=== PATIENT | male | born 1970 | race African-American/Black ===

== ENCOUNTER 2017-08-09 18:51 | Emergency (ER) | payer MEDICAID ==
[~2017-08-09] VITALS: Ht 182.9 cm; Wt 96.0 kg
[2017-08-09] MEDS ORDERED: BACITRACIN ZINC OINT UDPKT TOP ONE (20:00)
[2017-08-09] MEDS ORDERED: LIDOCAINE HCL 1% 20ML VIAL (Pyxis) INJ MC ONE (20:00)
[2017-08-09 21:00] VITALS: BP 144/91
== END 2017-08-09 21:05 | disposition home or self-care (01) ==
LOC: ER 18:55
DX: L02.414 Cutaneous abscess of left upper limb (principal); F17.210 Nicotine dependence, cigarettes, uncomplicated; F12.10 Cannabis abuse, uncomplicated
CPT/HCPCS: 10060; 99283; J3490; X7700; Z7610

== ENCOUNTER 2018-03-17 21:06 | Emergency (ER) | payer MEDICAID ==
[~2018-03-17] VITALS: Ht 182.9 cm; Wt 93.0 kg
[2018-03-17] MEDS ORDERED: IBUPROFEN 600MG TABLET PO ONE (23:30)
[2018-03-18 02:18] VITALS: BP 148/92
== END 2018-03-18 02:54 | disposition home or self-care (01) ==
LOC: ER 21:06
DX: S63.501A Unspecified sprain of right wrist, initial encounter (principal); M54.2 Cervicalgia; M54.5 Low back pain; R51 Headache; V43.52XA Car driver injured in collision with other type car in traffic accident, initial encounter; Y93.89 Activity, other specified; Y92.410 Unspecified street and highway as the place of occurrence of the external cause
CPT/HCPCS: 29125; 70450; 71045; 73110; 93005; 99284; Z7610

== ENCOUNTER 2018-08-13 12:53 | Inpatient (IN) | payer MEDICAID ==
[~2018-08-13] VITALS: Ht 182.9 cm; Wt 90.8 kg
[2018-08-13] MEDS: DEXT 5%/0.45% NACL 1000ML 1,000 ML IV SCH
[2018-08-13] MEDS ORDERED: MORPHINE SULFATE 4 MG/ML CPJ (NOT FOR IM USE) IV STA (15:29)
[2018-08-13] MEDS ORDERED: SODIUM CHLORIDE 0.9% 1,000 ML IV ONE (15:29)
[2018-08-13] MEDS ORDERED: ONDANSETRON HCL 4MG/2ML INJ IV STA (15:29)
[2018-08-13 16:29] LABS: HEMATOCRIT. 45.2 % (42.0-52.0); HEMOGLOBIN. 15.6 g/dL (14.0-18.0); MEAN CORPUSCULAR HEMOGLOBIN 31.3 pg (28.0-32.0); MEAN CORPUSCULAR VOLUME 90.8 fL (80.0-94.0); MEAN PLATELET VOLUME 8.2 fl (7.4-10.4); PLATELET 195 x1000/uL (130-400); RED BLOOD CELL COUNT 4.98 mill/uL (4.7-6.1); RED CELL DISTRIBUTION WIDTH 14.1 % (11.6-14.6)
[2018-08-13 16:33] LABS: INR 1.2; PROTHROMBIN TIME 11.6 sec (9.1-11.1)
[2018-08-13 16:35] LABS: CHLORIDE 99 mEq/L (98-107)
[2018-08-13 16:54] LABS: PLATELET ESTIMATE NORMAL
[2018-08-13] MEDS ORDERED: ONDANSETRON HCL 4MG/2ML INJ IV ONE (17:00)
[2018-08-13] MEDS ORDERED: PIPERACILLIN/TAZ 3.375G PREMIX 50 ML IV ONE (17:00)
[2018-08-13] MEDS ORDERED: MORPHINE SULFATE 10 MG/ML CPJ IV ONE ×2 (17:00→19:15)
[2018-08-13] MEDS ORDERED: SODIUM CHLORIDE 0.9% 1000ML BAG (SEPSIS BOLUS) IV ONE (17:00)
[2018-08-13] MEDS ORDERED: ONDANSETRON HCL 4MG/2ML INJ IV PRN (17:15)
[2018-08-13] MEDS ORDERED: BISACODYL 10MG SUPP PR PRN (17:15)
[2018-08-13] MEDS: MORPHINE SULFATE 4 MG/ML CPJ (NOT FOR IM USE) IV PRN (19:54)
[2018-08-13 22:00] VITALS: BP_SYST 125; BP_SYST 140; BP_DIAS 72; BP_DIAS 95
[2018-08-13] MEDS ORDERED: LEVOFLOXACIN 500MG PREMIX 100 ML IV SCH (23:30)
[2018-08-14] MEDS: MORPHINE SULFATE 4 MG/ML CPJ (NOT FOR IM USE) IV PRN ×4 (00:32→23:37)
[2018-08-14] MEDS: METRONIDAZOLE 500 MG PREMIX 100 ML IV SCH ×3 (02:13→18:22)
[2018-08-14 07:33] LABS: BASOPHILS % 0.1 % (0.0-2.0); EOSINOPHILS % 0.2 % (0.0-5.0); HEMATOCRIT. 38.8 % (42.0-52.0); HEMOGLOBIN. 13.3 g/dL (14.0-18.0); LYMPHOCYTES % 7.4 % (20.0-50.0); MEAN CORPUSCULAR HEMOGLOBIN 31.7 pg (28.0-32.0); MEAN CORPUSCULAR VOLUME 92.3 fL (80.0-94.0); MEAN PLATELET VOLUME 8.5 fl (7.4-10.4); MONOCYTES % 6.1 % (2.0-8.0); NEUTROPHILS % 86.2 % (40.0-76.0); PLATELET 157 x1000/uL (130-400); RED BLOOD CELL COUNT 4.21 mill/uL (4.7-6.1); RED CELL DISTRIBUTION WIDTH 14.2 % (11.6-14.6)
[2018-08-14 08:00] VITALS: BP 137/98
[2018-08-14 08:56] LABS: CHLORIDE 104 mEq/L (98-107)
[2018-08-14 12:00] VITALS: BP 151/68
[2018-08-14 16:00] VITALS: BP 160/59
[2018-08-15] MEDS ORDERED: LEVOFLOXACIN 500MG PREMIX 100 ML IV SCH (00:30)
[2018-08-15] MEDS: METRONIDAZOLE 500 MG PREMIX 100 ML IV SCH ×2 (01:28→09:00)
[2018-08-15 03:53] VITALS: BP 137/67
[2018-08-15] MEDS: MORPHINE SULFATE 4 MG/ML CPJ (NOT FOR IM USE) IV PRN (03:53)
[2018-08-15] MEDS: DEXT 5%/0.45% NACL 1000ML 1,000 ML IV SCH (09:01)
== END 2018-08-15 10:52 | disposition left against medical advice (07) | DRG 720 ==
LOC: ER 12:53 → 6EST 16:57 → EDBEDREQ 16:58 → ENRESERV 20:01
PROVIDERS: ADMIT Internal Medicine; ATTEND Internal Medicine
DX: A41.9 Sepsis, unspecified organism (principal); E44.1 Mild protein-calorie malnutrition; K57.32 Diverticulitis of large intestine without perforation or abscess without bleeding; I10 Essential (primary) hypertension; Z53.21 Procedure and treatment not carried out due to patient leaving prior to being seen by health care provider; K59.00 Constipation, unspecified; F17.200 Nicotine dependence, unspecified, uncomplicated; Z68.27 Body mass index [BMI] 27.0-27.9, adult
CPT/HCPCS: 36415; 74176; 80048; 83605; 96365; 96375; 96376; 99291; C1893; J1956; J2270; J2405; J2543; J3490; J7030